=== PATIENT | female | born 1990 | race African-American/Black ===

== ENCOUNTER 2020-11-16 07:55 | Emergency (ER) | payer BC ==
[2020-11-16] MEDS ORDERED: Fluorescein Opthalmic Strip ONE (09:00)
[2020-11-16] MEDS ORDERED: Proparacaine 0.5% Opth 15 ML BOT ONE (09:00)
== END 2020-11-16 10:07 | disposition home or self-care (01) ==
LOC: ERS 07:55
DX: H10.9 Unspecified conjunctivitis (principal)
CPT/HCPCS: 99283

== ENCOUNTER 2020-12-29 21:34 | Emergency (ER) | payer BC ==
[2020-12-30] MEDS ORDERED: Proparacaine 0.5% Opth 15 ML BOT ONE (00:03)
[2020-12-30] MEDS ORDERED: Fluorescein Opthalmic Strip ONE (00:03)
== END 2020-12-30 00:45 | disposition home or self-care (01) ==
LOC: ERS 21:34
DX: H10.9 Unspecified conjunctivitis (principal)
CPT/HCPCS: 99282

== ENCOUNTER 2021-03-12 11:02 | Emergency (ER) | payer BC ==
[2021-03-12] MEDS ORDERED: Ketorolac Tromethamine 30 MG/ML VIAL ONE (11:42)
[2021-03-12 12:19] LABS: #Eosinphils 0.1 thou/uL (0.0-0.7); #Monocytes 0.5 thou/uL (0.11-0.59); #Neutrophils 4.2 thou/uL (1.40-6.50); %Basophils 0.7 % (0.0-1.0); %Lymphocytes 28.7 % (21.0-51.0); %Monocytes 6.9 % (0.0-10.0); %Neutrophils 61.7 % (42.0-75.0); Hemoglobin 11.8 g/dL (12.0-16.0); Mean Corpuscular Volume 87.9 fL (78.0-98.0); Mean Platelet Volume 10.2 fL (7.4-10.4); Platelet Count 207 thou/uL (130-400); Red Blood Cell (RBC) Count 4.08 mill/uL (4.20-5.40); White Blood Cell (WBC) Count 6.9 thou/uL (4.8-10.8)
[2021-03-12 12:40] LABS: ALT (SGPT) 20 U/L (8-55); AST (SGOT) 18 U/L (5-34); Alkaline Phosphatase 40 U/L (40-110); Anion Gap 11 mmol/L (10-20); BUN (Urea Nitrogen) 8 mg/dL (7.0-18.7); Bilirubin, Total 0.5 mg/dL (0.2-1.2); Calc. Creatinine Clearance 0 mL/min (70-130); Calcium 9.3 mg/dL (7.8-10.44); Carbon Dioxide 24 mmol/L (22-29); Chloride 106 mmol/L (98-107); Globulin 3.2 g/dL (2.4-3.5); Glucose 98 mg/dL (70-105); Lipase 15 U/L (8-78); Potassium 4.2 mmol/L (3.5-5.1); Protein, Total 7.2 g/dL (6.0-8.3); Sodium 137 mmol/L (136-145)
== END 2021-03-12 13:18 | disposition home or self-care (01) ==
LOC: ERS 11:02
DX: R07.89 Other chest pain (principal)
CPT/HCPCS: 36415; 71045; 80053; 83690; 84484; 85025; 93005; 94760; 96372; J1885